=== PATIENT | male | born 1980 | race African-American/Black ===

== ENCOUNTER → 2019-02-28 | Outpatient (CLI) | payer OTHER, MEDICAID ==
[~2019-02-28] MED LIST: CEPHALEXIN 500500 M3 PO; COUMADIN 5 MG TA5 M1 PO; POTASSIUM20 PO; SSD CREAM 1% 5050 GM TOP; XEROFLO GAUZE1 EAC1 TP
== END ==
LOC: M.WC 13:00
DX: L89.322 Pressure ulcer of left buttock, stage 2 (principal); G82.21 Paraplegia, complete; F32.9 Major depressive disorder, single episode, unspecified; F41.9 Anxiety disorder, unspecified

== ENCOUNTER → 2019-03-07 | Outpatient (CLI) | payer OTHER, MEDICAID | LOC: M.WC 05:07 | DX: L89.322 Pressure ulcer of left buttock, stage 2 (principal); G82.21 Paraplegia, complete; F32.9 Major depressive disorder, single episode, unspecified; F41.9 Anxiety disorder, unspecified ==